=== PATIENT | female | born 1950 | race African-American/Black ===

== ENCOUNTER 2016-11-24 05:31 | Inpatient (IN) | payer OTHER ==
[2016-11-24] VITALS (15 sets, daily range): BP systolic 118–158; BP diastolic 68–87
[~2016-11-24] VITALS: Ht 157.5 cm; Wt 87.5 kg
[~2016-11-24 05:31] MED LIST: ASPIR 8181 MG ORAL; FLUTICASONE PRO16 G1 NASAL; LIPITOR10 MG ORAL; METOPROLOL SUCC25 MG ORAL; PROTONIX40 MG ORAL; QVAR7.3 GM INH
[2016-11-24] MEDS ORDERED: oxyCONTIN 20mg tab ORAL ONE (06:00)
[2016-11-24] MEDS ORDERED: celeBREX 200mg Cap **SURGERY PATIENTS ONLY ORAL ONE ×2 (06:00→06:26)
[2016-11-24] MEDS ORDERED: ceFAZolin 1gm/50ml Premix 50 ML IV ONE (06:00)
[2016-11-24] MEDS ORDERED: Ropivacaine 5mg/ml Vial 20ml INJ ONE (06:29)
[2016-11-24] MEDS ORDERED: Bacitracin 50000 Units Vial ONE (06:29)
--- NOTE | 2016-11-24 06:52 | Pre-Procedure Note/Attestation ---
Pre-Procedure Note/Attestation Complete Prior to Procedure Planned Procedure: right Procedure Narrative: Rt TKA Indications for Procedure Pre-Operative Diagnosis: Rt knee arthritis Attestation I attest that I discussed the nature of the procedure; its benefits; risks and complications; and alternatives (and the risks and benefits of such alternatives ), prior to the procedure, with the patient (or the patient's legal entry level account representative). I attest that, if there was a reasonable possibility of needing a blood transfusion, the patient (or the patient's legal entry level account representative) was given the [facility] standardized written summary, pursuant to the [place] Sophie Blood Safety Act ([place] Health and Safety Code # 1645, as amended). I attest that I re-evaluated the patient just prior to the surgery and that there has been no change in the patient's H&P, except as documented below:NONE JOSH BEYER Nov 24, 2016 06:52
[2016-11-24] MEDS ORDERED: NS Irrig 2000ml IRRIG ONE (07:00)
[2016-11-24] MEDS ORDERED: fentaNYL 100 mcg/2 mL IV ONE (07:00)
[2016-11-24] MEDS ORDERED: Propofol 10mg/ml 100ml btl IV ONE (07:00)
[2016-11-24] MEDS ORDERED: Sterile Water Irrig 1000ml IRRIG ONE (07:00)
[2016-11-24] MEDS ORDERED: NS Irrig 1000ml ONE (07:00)
[2016-11-24] MEDS ORDERED: LR 1000ml ONE (07:00)
[2016-11-24] MEDS ORDERED: HYDROmorphone 1mg/ml Carpuject SUBQ PRN (07:15)
[2016-11-24] MEDS ORDERED: Norco 5mg/325mg tab ORAL PRN (07:15)
[2016-11-24] MEDS ORDERED: LR 1000ml 1,000 ML IVLG SCH (08:18)
--- NOTE | 2016-11-24 08:18 | Anethesia Preoperative Eval ---
Anesthesia Pre-op PMH/ROS General Date of Evaluation: Nov 24, 2016 Time of Evaluation: 06:52 Anesthesiologist: Gwendolyn ASA Score: ASA 3 Mallampati Score Class I : Soft palate, uvula, fauces, pillars visible Class II: Soft palate, uvula, fauces visible Class III: Soft palate, base of uvula visible Class IV: Only hard plate visible Mallampati Classification: Class II Surgeon: Robert Diagnosis: R knee DJD Surgical Procedure: R total knee [id number] Anesthesia History: PONV Family History: no anesthesia problems Allergies: Coded Allergies: LATEX, NATURAL RUBBER (Verified Allergy, Intermediate, itching to hands and to eyes, 11/23/16) SULFAMETHOXAZOLE (Verified Allergy, Unknown, 11/19/16) TRIMETHOPRIM (Verified Allergy, Unknown, unknown, 11/23/16) Medications: see eMAR Past Medical History Cardiovascular: Reports: HTN, Denies: CAD, DC, arrhythmia, other, valve dz Pulmonary: Reports: YUE, asthma - mild, Denies: COPD, other Gastrointestinal/Genitourinary: Reports: GERD, Denies: CRI, ESRD, other Neurologic/Psychiatric: Denies: CVA, TIA, dementia, depression/anxiety, other Endocrine: Denies: DM, hypothyroidism, other, steroids HEENT: Denies: [place] (L), [place] (R), cataract (L), cataract (R), glaucoma, other Hematology/Immune: Denies: DVT, anemia, bleeding disorder, other Musculoskeletal/Integumentary: Reports: DJD, Denies: DDD, OA, RA, edema, other Other: obesity PMH Narrative: as above PSxH Narrative: x4 cholecystectomy, knee arthroscopy, bunionectomy, hysterectomy Anesthesia Pre-op Phys. Exam Physician Exam Last Vital Signs Date Time Temp Pulse Resp B/P Pulse Ox O2 Delivery O2 Flow Rate FiO2 11/24/16 06:30 97.7 65 20 134/85 100 Room Air Constitutional: NAD Neurologic: CN 2-12 intact Cardiovascular: RRR, no M/R/G Respiratory: CTA Gastrointestinal: other - obesity Airway Exam Mallampati Score: Class II MO: full Neck: stiff ROM: limited Teeth: intact Dentures: no lower, no upper Anesthesia Pre-op A/P Labs see chart Studies Pre-op Studies: EKG - NSR Risk Assessment & Plan Assessment: ASA 3 Plan: SAB vs GA R femoral nerve block for p/op pain control Status Change Before Surgery: No Pre-Antibiotics Drug: Ancef 2 gr. Given Within 1 Hr of Incision: Yes Time Given: 07:52 DYLAN HARRY M.D. Nov 24, 2016 08:18
[2016-11-24] MEDS: Bupivacaine w/Epi 0.5% 30ml Vial INJ ONE ×2 (08:27→08:56)
[2016-11-24] MEDS ORDERED: Hydromorphone 0.5mg/0.5ml inj IVP PRN (08:30)
[2016-11-24] MEDS ORDERED: Midazolam 2mg/2ml Inj IVP PRN (08:30)
[2016-11-24] MEDS ORDERED: DiphenhydrAMINE 50mg/ml Inj IVP PRN (08:30)
[2016-11-24] MEDS: celeBREX 200mg Cap **SURGERY PATIENTS ONLY ORAL SCH (09:00)
--- NOTE | 2016-11-24 09:39 | Brief Operative Note ---
Immediate Post Operative Note Operative Note Chief Complaint: rt knee pain Pre-op Diagnosis: rt knee arthritis Procedure: rt TKA Post-op Diagnosis: same as pre-op Findings: consistent w/pre-op dx studies Surgeon: md Robert Crossing Tender: lucy germain Anesthesiologist: md jamshid Anesthesia: general Specimen: yes Complications: none Condition: stable Estimated Blood Loss: minimal Drains: none Implant(s) used?: Yes - TAHIR Garcia Nov 24, 2016 09:39
--- NOTE | 2016-11-24 09:53 | Immediate Post-Op Evaluation ---
Immediate Post-Op Evalulation Immediate Post-Op Evalulation Procedure: R total knee arthroplasty Date of Evaluation: Nov 24, 2016 Time of Evaluation: 09:52 IV Fluids: 1600 Blood Products: none Estimated Blood Loss: 125 Urinary Output: 300 Blood Pressure Systolic: 157 Blood Pressure Diastolic: 82 Pulse Rate: 68 Respiratory Rate: 20 O2 Sat by Pulse Oximetry: 99 Temperature (Fahrenheit): 97.6 Pain Score (1-10): 1 Nausea: No Vomiting: No Complications none Patient Status: awake, patent, none Hydration Status: adequate DYLAN HARRY M.D. Nov 24, 2016 09:53
[2016-11-24] MEDS: oxyCONTIN 20mg tab ORAL SCH ×2 (12:00→21:25)
[2016-11-24] MEDS: Docusate 100mg cap ORAL SCH ×3 (12:37→18:49)
[2016-11-24] MEDS: D5 1/2NS w/KCl 20mEq 1,000 ML IV SCH (12:44)
--- NOTE | 2016-11-24 13:34 | Diagnostic Imaging Report ---
Indication: POST-OP Technique: 2 views of the right knee Comparison: None Findings: There is a right knee prosthesis. This appears well aligned. Retained air from the surgical wound is noted. Impression: Postoperative right knee. No unusual features
[2016-11-24] MEDS: ceFAZolin sod 1 GM in D5W 55 ML IV SCH (14:16)
--- NOTE | 2016-11-24 16:24 | General Progress Note ---
Assessment/Plan Status Narrative s/p TKr htn hyperl;ipid GERD Assessment/Plan Pain control Pt ot dvt prophyal;xis Subjective Date patient seen: Nov 24, 2016 Time patient seen: 16:23 Constitutional: Reports: no symptoms HEENT: Reports: no symptoms Gastrointestinal/Abdominal: Reports: other - calderon had vomitying and nausea Allergies: Coded Allergies: LATEX, NATURAL RUBBER (Verified Allergy, Intermediate, itching to hands and to eyes, 11/23/16) SULFAMETHOXAZOLE (Verified Allergy, Unknown, 11/19/16) TRIMETHOPRIM (Verified Allergy, Unknown, unknown, 11/23/16) Objective Last 24 Hour Vital Signs Date Time Temp Pulse Resp B/P Pulse Ox O2 Delivery O2 Flow Rate FiO2 11/24/16 16:17 97.5 71 18 136/68 92 Room Air 11/24/16 15:13 97.9 11/24/16 12:34 97.9 66 18 118/68 100 Room Air 11/24/16 12:00 97.5 0 16 135/78 96 Room Air 11/24/16 11:15 97.7 64 15 142/77 98 Room Air 11/24/16 11:00 61 14 155/75 96 Room Air 11/24/16 10:50 65 18 158/76 97 Nasal Cannula 3.0 11/24/16 10:45 66 17 142/72 95 Nasal Cannula 3.0 11/24/16 10:30 63 16 155/80 99 Nasal Cannula 3.0 11/24/16 10:15 69 14 144/86 98 Nasal Cannula 3.0 11/24/16 10:00 68 15 157/82 100 Simple Mask 6.0 11/24/16 09:55 71 18 147/84 100 Simple Mask 6.0 11/24/16 09:53 68 20 99 11/24/16 09:50 70 15 153/81 100 Simple Mask 6.0 11/24/16 09:44 97.5 72 20 158/87 100 Simple Mask 6.0 11/24/16 06:30 97.7 65 20 134/85 100 Room Air Height (Feet): 5 Height (Inches): 2.00 Weight (Pounds): 193 General Appearance: WD/WN EENT: PERRL/EOMI Neck: non-tender Cardiovascular: regular rhythm, no JVD Respiratory/Chest: lungs clear Abdomen: non tender, soft MARIVEL,DEBORAH Nov 24, 2016 16:24
--- NOTE | 2016-11-24 21:08 | Operative Note - Dictated ---
DATE OF OPERATION: 11/24/2016 PREOPERATIVE DIAGNOSIS: Right knee end-stage arthritis. POSTOPERATIVE DIAGNOSIS: Right knee end-stage arthritis. PROCEDURE: Right total knee arthroplasty using [employer] system, size 8 femur, size E tibial plate with a 32 mm all poly patella and 10 mm tibial poly insert. SURGEON: Will Jones M.D. FOLDER SEAMER: Hui Moreno PA-C. ANESTHESIOLOGIST: Britton Snow M.D. ANESTHESIA: Spinal anesthesia combined with femoral nerve block for postoperative pain management. EBL: Less than 100 mL. TOURNIQUET TIME: 70 minutes. COMPLICATIONS: None. BRIEF HISTORY: The patient is a very pleasant 65-year-old female, who has had ongoing right knee pain. She has had achiness in the right knee, decreased range of motion, and stiffness. After she failed nonoperative treatment, after full discussion of the risks and benefits of the surgery and complications associated with it including infection, bleeding, neurovascular complication, possibility of loss of motion, possibility of continued pain, possibility of DVT and PE, possibility of knee deep infection requiring resection arthroplasty, and other complications that may arise, she opted for surgical treatment as described above. OPERATIVE PROCEDURE: The patient was brought to the operating table and was placed supine. All pressure points were well padded. Spinal anesthesia was induced and the right femoral block was performed by anesthesiologist. The right leg was then prepped and draped in usual sterile fashion and preop antibiotic was given. The right knee was exsanguinated. Tourniquet was inflated to 275 mmHg. The incision was taken down through the subcutaneous tissue down to the patellar tendon. The incision was taken on medially and medial peripheral arthrotomy was performed. The patella was then everted and the fat pad was resected. Medial and lateral meniscus were resected. The ACL and PCL were resected. At this point, intramedullary access into the femur was obtained and an intramedullary guide was placed in without any complication. Once this was completed, a 5-degree valgus distal femoral cut was performed without any complication. An optional extra 2 mm was taken off the distal femur due to lack of extension preoperatively. Once this was completed, sizing of the distal femur was performed and size 8 appeared to be the right size. Using a transepicondylar axis, the cutting guide was placed in about 3 degrees external rotation and anterior, posterior, and chamfer cuts were performed without any complication. At this point, the femur was trialed on and there was excellent fit. The peg holes were drilled without any complications. Once this was completed, the knee was placed through range of motion with full extension and full flexion with good stability. At this point, the trial component was removed and care was given to tibia. Posterior, medial, and lateral retractors were placed in. The anterior tibial crest was marked with a marking pen. This was used as a guide for extramedullary guide for anatomical axis. Once this was completed, the extramedullary guide was then applied. Anatomical axis was recreated and 10 mm was taken off the least involved side, which was the medial side. The position of the guide slope anatomical axis and resection was checked and rechecked, and at this point, a tibial cut was performed without any complication. All vital structures were retracted and protected with retractors. At this point, the tibial cut was performed. Size E appeared to be the right size. At this point, the size E trial was then placed in about 3 degrees external rotation and was pinned in. A flexion-extension gap was checked using 10 mm insert and a femoral trial. There was excellent range of motion, excellent stability at 0 to 30 degrees, 45 degrees, and 90 degrees of range of motion. There was full extension and full flexion. At this point, the tibial stem was then punched in without any complications. Once this was completed, care was given to the patella. The patella was everted. It measured 24 mm. At this point, a freehand patellar cut was performed and 14 mm of the patella was remaining. Measurements were made and 32 mm patella appeared to be the right size. The peg holes were drilled and patellar component was slightly medialized. Once this was completed, the tibial component, femoral component, and a 10 mm insert as well as a patellar component were all assembled and the knee was placed through range of motion. There was excellent patellofemoral tracking. There was full extension, full flexion, excellent stability at 0 to 30 degrees, 45 degrees, and 90 degrees of flexion. At this point, all trial components were removed and the knee was thoroughly irrigated using copious amount of fluid. The bone plug was used to plug off the femoral intramedullary access. The cement was mixed and the tibial component, femoral component, and patellar component were all cemented without any complication. All excess cement was removed without any complication. Once this was completed and once the cement hardened in compression mode, the trialing was performed and 10 mm trial appeared to be the excellent fit for tibial insert with stability and range of motion described previously. At this point, the knee was thoroughly irrigated using Simpulse irrigation. The posterior capsule was injected with 0.5% Marcaine with epinephrine. The tibial insert was then locked in without any complication. Range of motion and stability and patellofemoral tracking was rechecked for the last time and it appeared to be appropriate as described previously. At this point, all wounds were thoroughly irrigated using copious amount of fluid again. The tourniquet was deflated and all bleeders were stopped. The extensor mechanism was closed using a #1 Vicryl suture, subcutaneous tissue was closed using 2-0 Vicryl suture, and skin was closed using 3-0 Monocryl suture. Dermabond was applied and sterile dressing was applied and the patient was taken to recovery room in stable condition. Will Jones M.D. DR: NUHA JOB#: [id number] CC:
[2016-11-24] MEDS: Norco 7.5mg/325mg tab ORAL PRN (21:25)
[2016-11-24] MEDS: Enoxaparin 30mg Inj SUBQ SCH (21:26)
[2016-11-25] VITALS (7 sets, daily range): BP systolic 120–170; BP diastolic 57–78
[2016-11-25] MEDS: ceFAZolin sod 1 GM in D5W 55 ML IV SCH (01:13)
[2016-11-25] MEDS: D5 1/2NS w/KCl 20mEq 1,000 ML IV SCH ×2 (01:14→14:17)
[2016-11-25 07:40] LABS: BASOPHILS % (AUTO) 0.3 % (0.0-2.0); EOSINOPHILS % (AUTO) 0.2 % (0.0-3.0); LYMPHOCYTES % (AUTO) 23.5 % (20.0-45.0); MEAN CORPUSCULAR HEMOGLOBIN 30.4 PG (27.0-31.0); MEAN CORPUSCULAR HGB CONC 33.9 G/DL (32.0-36.0); MEAN CORPUSCULAR VOLUME 90 FL (80-99); MEAN PLATELET VOLUME 7.6 FL (6.5-10.1); PLATELET COUNT 212 K/UL (150-450); RED BLOOD COUNT 3.39 M/UL (4.20-5.40); RED CELL DISTRIBUTION WIDTH 12.6 % (11.6-14.8); WHITE BLOOD COUNT 12.8 K/UL (4.8-10.8)
--- NOTE | 2016-11-25 08:06 | Orthopedic Progress Note ---
Orthopedic - Progress Note Subjective Symptoms: improved Objective Vital Signs Laboratory Tests Test 11/25/16 06:45 White Blood Count 12.8 K/UL (4.8-10.8) H Red Blood Count 3.39 M/UL (4.20-5.40) L Hemoglobin 10.3 G/DL (12.0-16.0) L Hematocrit 30.4 % (37.0-47.0) L Mean Corpuscular Volume 90 FL (80-99) Mean Corpuscular Hemoglobin 30.4 PG (27.0-31.0) Mean Corpuscular Hemoglobin Concent 33.9 G/DL (32.0-36.0) Red Cell Distribution Width 12.6 % (11.6-14.8) Platelet Count 212 K/UL (150-450) Mean Platelet Volume 7.6 FL (6.5-10.1) Neutrophils (%) (Auto) 67.0 % (45.0-75.0) Lymphocytes (%) (Auto) 23.5 % (20.0-45.0) Monocytes (%) (Auto) 9.0 % (1.0-10.0) Eosinophils (%) (Auto) 0.2 % (0.0-3.0) Basophils (%) (Auto) 0.3 % (0.0-2.0) Last 24 Hour Vital Signs Date Time Temp Pulse Resp B/P Pulse Ox O2 Delivery O2 Flow Rate FiO2 11/25/16 04:00 97.7 83 18 127/57 95 Room Air 11/25/16 00:00 99.0 80 20 136/60 95 Room Air 11/24/16 22:24 97.2 11/24/16 20:00 97.2 64 19 139/75 97 Room Air 11/24/16 16:17 97.5 71 18 136/68 92 Room Air 11/24/16 15:13 97.9 11/24/16 12:34 97.9 66 18 118/68 100 Room Air 11/24/16 12:00 97.5 0 16 135/78 96 Room Air 11/24/16 11:15 97.7 64 15 142/77 98 Room Air 11/24/16 11:00 61 14 155/75 96 Room Air 11/24/16 10:50 65 18 158/76 97 Nasal Cannula 3.0 11/24/16 10:45 66 17 142/72 95 Nasal Cannula 3.0 11/24/16 10:30 63 16 155/80 99 Nasal Cannula 3.0 11/24/16 10:15 69 14 144/86 98 Nasal Cannula 3.0 11/24/16 10:00 68 15 157/82 100 Simple Mask 6.0 11/24/16 09:55 71 18 147/84 100 Simple Mask 6.0 11/24/16 09:53 68 20 99 11/24/16 09:50 70 15 153/81 100 Simple Mask 6.0 11/24/16 09:44 97.5 72 20 158/87 100 Simple Mask 6.0 I&O Intake and Output 11/24/16 11/25/16 19:00 07:00 Intake Total 75 ml 1050 ml Output Total 750 ml Balance -675 ml 1050 ml Intake Oral 600 ml IV Total 75 ml 450 ml Output Urine Total 750 ml Wound: clean, dry, intact Drains: none Neuro Status: normal Vascular Status: normal Additional Comments xray reviewed Assessment Post-op Diagnosis POD 1 Procedure Performed rt TKA Plan Plan: PT, discharge plan - home with services and DME on Wednesday TAHIR HATHAWAY Nov 25, 2016 08:06
[2016-11-25] MEDS: celeBREX 200mg Cap **SURGERY PATIENTS ONLY ORAL SCH (08:37)
[2016-11-25] MEDS: oxyCONTIN 20mg tab ORAL SCH ×2 (08:38→20:53)
[2016-11-25] MEDS: Enoxaparin 30mg Inj SUBQ SCH ×2 (08:43→20:59)
--- NOTE | 2016-11-25 12:02 | 48 Hour Post Anesthesia Eval ---
Post Anesthesia Evaluation Procedure: R total knee arthroplasty Date of Evaluation: Nov 25, 2016 Time of Evaluation: 07:00 Blood Pressure Systolic: 127 0: 57 Pulse Rate: 83 Respiratory Rate: 18 Temperature (Fahrenheit): 97.7 O2 Sat by Pulse Oximetry: 95 Airway: patent Nausea: No Vomiting: No Pain Intensity: 2 Hydration Status: adequate Cardiopulmonary Status: at baseline Mental Status/LOC: patient returned to baseline Post-Anesthesia Complications: 0 Follow-up care needed: N/A - further care as per primary team JOSE ARMANDO SANFORD M.D. Nov 25, 2016 12:02
[2016-11-25] MEDS: Docusate 100mg cap ORAL SCH ×2 (14:13→17:28)
[2016-11-25] MEDS: Norco 7.5mg/325mg tab ORAL PRN (15:51)
--- NOTE | 2016-11-25 16:42 | General Progress Note ---
Assessment/Plan Status Narrative s/p totla knee replacement perioperative expected bloo dloss post op pain anemia Assessment/Plan Pain control Pt ot dvt prophyal;xis noted to have high bp will folllow start clonidine 0.1 q 6 prn sbp over 160 also norvasc 2.5 mg daily Subjective Date patient seen: Nov 25, 2016 Time patient seen: 16:39 Constitutional: Reports: no symptoms HEENT: Reports: no symptoms Cardiovascular: Reports: no symptoms Respiratory: Reports: no symptoms Allergies: Coded Allergies: LATEX, NATURAL RUBBER (Verified Allergy, Intermediate, itching to hands and to eyes, 11/23/16) SULFAMETHOXAZOLE (Verified Allergy, Unknown, 11/19/16) TRIMETHOPRIM (Verified Allergy, Unknown, unknown, 11/23/16) Objective Last 24 Hour Vital Signs Date Time Temp Pulse Resp B/P Pulse Ox O2 Delivery O2 Flow Rate FiO2 11/25/16 14:13 83 127/57 11/25/16 12:02 83 18 95 11/25/16 12:00 97.9 67 18 144/71 98 Room Air 11/25/16 11:29 97.0 11/25/16 09:37 97.0 11/25/16 08:40 97.0 90 18 120/67 95 Room Air 11/25/16 04:00 97.7 83 18 127/57 95 Room Air 11/25/16 00:00 99.0 80 20 136/60 95 Room Air 11/24/16 22:24 97.2 11/24/16 20:00 97.2 64 19 139/75 97 Room Air Intake and Output 11/24/16 11/25/16 19:00 07:00 Intake Total 75 ml 1125 ml Output Total 750 ml Balance -675 ml 1125 ml Intake Oral 600 ml IV Total 75 ml 525 ml Output Urine Total 750 ml Laboratory Tests 11/25/16 06:45: White Blood Count 12.8H, Red Blood Count 3.39L, Hemoglobin 10.3L, Hematocrit 30.4L, Mean Corpuscular Volume 90, Mean Corpuscular Hemoglobin 30.4, Mean Corpuscular Hemoglobin Concent 33.9, Red Cell Distribution Width 12.6, Platelet Count 212, Mean Platelet Volume 7.6, Neutrophils (%) (Auto) 67.0, Lymphocytes (% ) (Auto) 23.5, Monocytes (%) (Auto) 9.0, Eosinophils (%) (Auto) 0.2, Basophils ( %) (Auto) 0.3 Height (Feet): 5 Height (Inches): 2.00 Weight (Pounds): 193 General Appearance: WD/WN Neck: non-tender Cardiovascular: normal rate, regular rhythm, no gallop/murmur, no JVD Respiratory/Chest: lungs clear Abdomen: soft Extremities: other Edema: other - no cl;ubbing Neurologic: oriented x 3 DEBORAH ORTA Nov 25, 2016 16:42
[2016-11-25] MEDS: Norco 10mg/325mg tab ORAL PRN (20:54)
[2016-11-26] VITALS: BP 115/59
[2016-11-26] MEDS: D5 1/2NS w/KCl 20mEq 1,000 ML IV SCH (02:52)
[2016-11-26] MEDS: Norco 10mg/325mg tab ORAL PRN ×3 (02:58→22:13)
[2016-11-26 04:00] VITALS: BP 109/57
--- NOTE | 2016-11-26 07:09 | Orthopedic Progress Note ---
Orthopedic - Progress Note Subjective Symptoms: c/o post-op knee pain Additional Comments Slow with PT, Objective Vital Signs Last 24 Hour Vital Signs Date Time Temp Pulse Resp B/P Pulse Ox O2 Delivery O2 Flow Rate FiO2 11/26/16 04:00 97.9 74 19 109/57 92 Room Air 11/26/16 00:00 98.5 83 20 115/59 95 Room Air 11/25/16 21:53 98.2 11/25/16 21:52 98.2 11/25/16 20:00 98.2 77 20 161/66 91 Room Air 11/25/16 17:30 97.9 11/25/16 17:28 170/78 11/25/16 16:00 97.9 76 20 170/78 92 Room Air 11/25/16 14:13 83 127/57 11/25/16 12:02 83 18 95 11/25/16 12:00 97.9 67 18 144/71 98 Room Air 11/25/16 11:29 97.0 11/25/16 08:40 97.0 90 18 120/67 95 Room Air I&O Intake and Output 11/25/16 11/26/16 19:00 07:00 Intake Total 1500 ml 300 ml Output Total 1650 ml 800 ml Balance -150 ml -500 ml Intake Oral 600 ml IV Total 900 ml 300 ml Output Urine Total 1650 ml 800 ml Wound: clean, dry Drains: none Neuro Status: normal Vascular Status: normal Assessment Post-op Diagnosis S/p Right TKA Plan Plan: PT, pain management, discharge plan, discharge to home Additional Comments dressing changes today JOSH BEYER Nov 26, 2016 07:09
[2016-11-26 07:17] LABS: BASOPHILS % (AUTO) 0.3 % (0.0-2.0); EOSINOPHILS % (AUTO) 0.7 % (0.0-3.0); LYMPHOCYTES % (AUTO) 22.5 % (20.0-45.0); MEAN CORPUSCULAR HEMOGLOBIN 30.5 PG (27.0-31.0); MEAN CORPUSCULAR HGB CONC 33.9 G/DL (32.0-36.0); MEAN CORPUSCULAR VOLUME 90 FL (80-99); MEAN PLATELET VOLUME 6.9 FL (6.5-10.1); MONOCYTES % (AUTO) 10.1 % (1.0-10.0); NEUTROPHILS % (AUTO) 66.4 % (45.0-75.0); PLATELET COUNT 193 K/UL (150-450); RED BLOOD COUNT 3.07 M/UL (4.20-5.40); RED CELL DISTRIBUTION WIDTH 12.4 % (11.6-14.8); WHITE BLOOD COUNT 12.5 K/UL (4.8-10.8)
[2016-11-26 08:00] VITALS: BP 104/55
[2016-11-26] MEDS: Docusate 100mg cap ORAL SCH ×3 (08:47→17:12)
[2016-11-26] MEDS: oxyCONTIN 20mg tab ORAL SCH ×2 (08:47→21:30)
[2016-11-26] MEDS: celeBREX 200mg Cap **SURGERY PATIENTS ONLY ORAL SCH (08:48)
[2016-11-26] MEDS: Enoxaparin 30mg Inj SUBQ SCH ×2 (08:51→21:31)
[2016-11-26 12:00] VITALS: BP 126/60
[2016-11-26 15:59] VITALS: BP 158/77
--- NOTE | 2016-11-26 19:02 | General Progress Note ---
Assessment/Plan Status Narrative s/p tkr had a fall after bathroom non syncopal fall xray elbow knee and the tib fib ordred Assessment/Plan Pain control Pt ot dvt prophyal;xis noted to have high bp will folllow follow bp meds [id number] await xray results. Subjective Date patient seen: Nov 26, 2016 Time patient seen: 19:01 Constitutional: Reports: no symptoms Cardiovascular: Reports: no symptoms Respiratory: Reports: no symptoms Gastrointestinal/Abdominal: Reports: no symptoms Genitourinary: Reports: no symptoms Allergies: Coded Allergies: LATEX, NATURAL RUBBER (Verified Allergy, Intermediate, itching to hands and to eyes, 11/23/16) SULFAMETHOXAZOLE (Verified Allergy, Unknown, 11/19/16) TRIMETHOPRIM (Verified Allergy, Unknown, unknown, 11/23/16) Objective Last 24 Hour Vital Signs Date Time Temp Pulse Resp B/P Pulse Ox O2 Delivery O2 Flow Rate FiO2 11/26/16 15:59 98.1 90 19 158/77 99 Room Air 11/26/16 12:00 98.2 78 20 126/60 100 Room Air 11/26/16 09:46 97.9 11/26/16 08:51 79 104/55 11/26/16 08:51 79 104/55 11/26/16 08:00 98.2 79 18 104/55 97 Room Air 11/26/16 04:00 97.9 74 19 109/57 92 Room Air 11/26/16 00:00 98.5 83 20 115/59 95 Room Air 11/25/16 21:53 98.2 11/25/16 20:00 98.2 77 20 161/66 91 Room Air Intake and Output 11/25/16 11/26/16 19:00 07:00 Intake Total 1500 ml 375 ml Output Total 1650 ml 800 ml Balance -150 ml -425 ml Intake Oral 600 ml IV Total 900 ml 375 ml Output Urine Total 1650 ml 800 ml Laboratory Tests 11/26/16 05:52: White Blood Count 12.5H, Red Blood Count 3.07L, Hemoglobin 9.3L, Hematocrit 27.6L, Mean Corpuscular Volume 90, Mean Corpuscular Hemoglobin 30.5, Mean Corpuscular Hemoglobin Concent 33.9, Red Cell Distribution Width 12.4, Platelet Count 193, Mean Platelet Volume 6.9, Neutrophils (%) (Auto) 66.4, Lymphocytes (% ) (Auto) 22.5, Monocytes (%) (Auto) 10.1H, Eosinophils (%) (Auto) 0.7, Basophils (%) (Auto) 0.3 Height (Feet): 5 Height (Inches): 2.00 Weight (Pounds): 193 General Appearance: WD/WN Neck: supple Cardiovascular: normal rate, regular rhythm, no JVD Respiratory/Chest: lungs clear Abdomen: soft DEBORAH ORTA Nov 26, 2016 19:02
[2016-11-26 20:34] VITALS: BP 139/64
[2016-11-26] MEDS: Milk of Magnesia 30ml Ud ORAL PRN (22:16)
[2016-11-27] VITALS: BP 123/65
[2016-11-27 04:00] VITALS: BP 120/81
[2016-11-27 07:04] LABS: BASOPHILS % (AUTO) 0.5 % (0.0-2.0); EOSINOPHILS % (AUTO) 2.4 % (0.0-3.0); LYMPHOCYTES % (AUTO) 26.8 % (20.0-45.0); MEAN CORPUSCULAR HEMOGLOBIN 29.7 PG (27.0-31.0); MEAN CORPUSCULAR VOLUME 90 FL (80-99); MEAN PLATELET VOLUME 6.6 FL (6.5-10.1); MONOCYTES % (AUTO) 9.4 % (1.0-10.0); NEUTROPHILS % (AUTO) 60.9 % (45.0-75.0); PLATELET COUNT 233 K/UL (150-450); RED BLOOD COUNT 3.09 M/UL (4.20-5.40); RED CELL DISTRIBUTION WIDTH 12.4 % (11.6-14.8); WHITE BLOOD COUNT 10.6 K/UL (4.8-10.8)
--- NOTE | 2016-11-27 07:49 | Orthopedic Progress Note ---
Orthopedic - Progress Note Subjective Additional Comments had a slip off the commode last evening. landed in a seated position. xrays rt knee, tib/fib and rt elbow taken- no fracture. Has had some increase in knee pain since. wants to go home today Objective Vital Signs Laboratory Tests Test 11/27/16 06:20 White Blood Count 10.6 K/UL (4.8-10.8) Red Blood Count 3.09 M/UL (4.20-5.40) L Hemoglobin 9.2 G/DL (12.0-16.0) L Hematocrit 27.8 % (37.0-47.0) L Mean Corpuscular Volume 90 FL (80-99) Mean Corpuscular Hemoglobin 29.7 PG (27.0-31.0) Mean Corpuscular Hemoglobin Concent 33.0 G/DL (32.0-36.0) Red Cell Distribution Width 12.4 % (11.6-14.8) Platelet Count 233 K/UL (150-450) Mean Platelet Volume 6.6 FL (6.5-10.1) Neutrophils (%) (Auto) 60.9 % (45.0-75.0) Lymphocytes (%) (Auto) 26.8 % (20.0-45.0) Monocytes (%) (Auto) 9.4 % (1.0-10.0) Eosinophils (%) (Auto) 2.4 % (0.0-3.0) Basophils (%) (Auto) 0.5 % (0.0-2.0) Last 24 Hour Vital Signs Date Time Temp Pulse Resp B/P Pulse Ox O2 Delivery O2 Flow Rate FiO2 11/27/16 04:00 98.1 90 18 120/81 95 Room Air 11/27/16 00:00 98.2 91 18 123/65 98 Room Air 11/26/16 22:29 98.1 11/26/16 22:29 98.1 11/26/16 20:34 98.1 95 18 139/64 93 Room Air 11/26/16 15:59 98.1 90 19 158/77 99 Room Air 11/26/16 12:00 98.2 78 20 126/60 100 Room Air 11/26/16 08:51 79 104/55 11/26/16 08:51 79 104/55 11/26/16 08:00 98.2 79 18 104/55 97 Room Air I&O Intake and Output 11/26/16 11/27/16 19:00 07:00 Intake Total 705 ml 540 ml Output Total 1350 ml Balance -645 ml 540 ml Intake Oral 480 ml 540 ml IV Total 225 ml Output Urine Total 1350 ml # Voids 5 Wound: clean, dry, intact Drains: none Neuro Status: normal Vascular Status: normal Assessment Post-op Diagnosis POD 3 Procedure Performed rt TKA Plan Plan: PT - work with PT today prior to d/c, discharge to home - later today, once pt has had PT. Home with services and DME TAHIR HATHAWAY Nov 27, 2016 07:49
[2016-11-27] MEDS: Milk of Magnesia 30ml Ud ORAL PRN (08:25)
[2016-11-27 08:26] VITALS: BP 140/70
[2016-11-27] MEDS: Docusate 100mg cap ORAL SCH ×2 (08:26→12:52)
[2016-11-27] MEDS: celeBREX 200mg Cap **SURGERY PATIENTS ONLY ORAL SCH (08:26)
[2016-11-27] MEDS: oxyCONTIN 20mg tab ORAL SCH (08:28)
[2016-11-27] MEDS: Enoxaparin 30mg Inj SUBQ SCH (08:34)
--- NOTE | 2016-11-27 09:19 | Discharge Summary 2 SIG ---
DATE OF ADMISSION: 11/24/2016 DATE OF DISCHARGE: 11/27/2016 HOSPITAL COURSE: The patient is a very pleasant 65-year-old female, who was admitted after a right total knee arthroplasty. She did well postoperatively. We will follow along with physical therapy as well as Dr. Jung from Internal Medicine. She was seen by physical therapy and was ambulating well at the time of discharge. On 11/26/2016, the patient did have a mechanical slip in her room. She fell into a seated position. X-rays of the right knee and right tib-fib and right elbow were obtained. No fracture or abnormalities were noted. She had mild increase in her right knee pain after this fall, but still able to work well with physical therapy with weightbearing as tolerated and back using CPM machine. The patient being discharged on 11/27/2016 with home care services and DME as well as medication. DISCHARGE INSTRUCTIONS: The patient may be weightbearing as tolerated. She will change dressing as needed. She is to continue Lovenox for full 14 days. We will see her in the office in 7 to 10 days for outpatient management. Will Jones M.D. I have been assigned to dictate discharge summary on this account and I was not involved in the patient's management. Estefany Chang DR: Monik JOB#: [id number] CC:
[2016-11-27 11:56] VITALS: BP 133/72
--- NOTE | 2016-11-27 13:54 | Diagnostic Imaging Report ---
Indication: Pain 3 views of the right knee were obtained. Findings: Total knee arthroplasty demonstrated. There is no fracture or malalignment. There may be a joint effusion present given the fullness of the suprapatellar pouch. In the anterior part of the knee in the area of hoffa's fat pad there are small bubbles of air present. Please correlate clinically. If the patient has had recent intervention such as a joint aspiration or surgery, then this may be related to the procedure. Air could be introduced from a penetrating injury also. In the absence of such history, the possibility of an infection and air producing organism should be considered. Please correlate clinically. Impression: Apparent air in the anterior aspect of the knee. Discussion as above
--- NOTE | 2016-11-27 13:54 | Diagnostic Imaging Report ---
Indication: Pain Comparison: None Findings: Two views of the right tibia and fibula were obtained. There is a right total knee arthroplasty partially imaged on this study. There is no fracture of the tibia or fibula identified. Small amount of lucency noted in the anterior part of the right knee likely air. Impression: Query air within the joint space of the knee. Total knee plasty noted.
--- NOTE | 2016-11-27 13:54 | Diagnostic Imaging Report ---
Indication: Pain Findings: 3 views of the right elbow were obtained. No acute fractures, malalignment, erosions or periostitis are identified. Bone mineralization is within normal limits. Soft tissues are unremarkable. Impression: Negative examination of the elbow.
== END 2016-11-27 15:28 | disposition home health service (06) | DRG 470 ==
LOC: 3E 05:31 → UNDOADMIN 05:31 → SDSOVERFLO 05:31 → 3E 11:24 → SDSOVERFLO 11:24
PROC: 0SRC0J9 Replacement of Right Knee Joint with Synthetic Substitute, Cemented, Open Approach (ICD-10-PCS; principal; 2016-11-24 07:00)
DX: M17.11 Unilateral primary osteoarthritis, right knee (principal); I10 Essential (primary) hypertension; K21.9 Gastro-esophageal reflux disease without esophagitis; E78.5 Hyperlipidemia, unspecified; Z88.2 Allergy status to sulfonamides; Z88.8 Allergy status to other drugs, medicaments and biological substances; G47.33 Obstructive sleep apnea (adult) (pediatric); G89.18 Other acute postprocedural pain; W18.11XA Fall from or off toilet without subsequent striking against object, initial encounter
CPT/HCPCS: 36415; 85025; 86850; 86900; 86901; 86920; 87081; 94003; 94150; J2405